=== PATIENT | male | born 1990 | race African-American/Black ===

== ENCOUNTER 2022-08-06 11:50 | Emergency (ER) | payer SELFPAY ==
[2022-08-06] MEDS ORDERED: Dexamethasone 4 MG TAB ONE (14:15)
[2022-08-06] MEDS ORDERED: Ibuprofen 200 MG TAB ONE (14:15)
== END 2022-08-06 14:18 | disposition home or self-care (01) ==
LOC: BURERS 11:50
DX: J10.1 Influenza due to other identified influenza virus with other respiratory manifestations (principal); F17.210 Nicotine dependence, cigarettes, uncomplicated
CPT/HCPCS: 87081; 87430; 87804; 99283; J8540

== ENCOUNTER 2023-01-31 10:05 | Emergency (ER) | payer SELFPAY | END 2023-01-31 10:25 | disposition home or self-care (01) | LOC: BURERS 10:05 | DX: R19.7 Diarrhea, unspecified (principal); F17.210 Nicotine dependence, cigarettes, uncomplicated | CPT/HCPCS: 99283 ==